=== PATIENT | female | born 1945 | race Caucasian/White ===

== ENCOUNTER 2020-10-17 15:34 | Inpatient (IN) | payer OTHER ==
[~2020-10-17] VITALS: Ht 160 cm; Wt 83.5 kg
--- NOTE | ~2020-10-17 | OP ---
[address] [address] OPERATIVE REPORT Name: CHRISTI CORONA Room: [address]#: [id number] Admission: 10/17/20 Attend Phys: Bayron Shaffer MD Discharge: Date of : 47 Report #: [id number] THIS REPORT FOR: //name// cc: Hugo Byrd David DO ~ CC: Hugo Shaffer DICTATED BY: Karlos Strauss DO DATE OF SERVICE: 10/18/2020 Dr. Strauss dictating operative report for Dr. Shay David. PREOPERATIVE DIAGNOSIS: Left intertrochanteric femur fracture. POSTOPERATIVE DIAGNOSIS: Left intertrochanteric femur fracture. PROCEDURE: Open reduction and internal fixation of left hip with a cephalomedullary nail. IMPLANTS USED: Paramount gamma nail 11 x 180 with a 110 mm lag screw and 40 mm distal interlocking screw. ATTENDING: Shay David DO ASSISTANTS: Karlos Strauss DO ANESTHESIA: General. FLUIDS: Crystalloid per Anesthesia. ESTIMATED BLOOD LOSS: 100 mL. COMPLICATIONS: None. SPECIMENS: None. COMPLICATIONS: None. CONDITION: Stable to PACU. DISPOSITION: Recovery in PACU and transferred back to the floor. ANTIBIOTICS: 2 grams Ancef IV preop. [address] [address] OPERATIVE REPORT Name: CHRISTI CORONA Room: [address]#: [id number] Admission: 10/17/20 Attend Phys: Bayron Shaffer MD Discharge: Date of : 47 Report #: [id number] INDICATIONS: The patient is a very pleasant 75-year-old female with past medical history of breast cancer. She sustained a ground level fall outside at home while setting up [employer]. She fell onto her left hip. She was brought to [facility] where x-rays identified a displaced intertrochanteric femur fracture. We recommended surgical fixation. The risks, benefits, alternatives and possible complications were discussed at length and she is agreeable to proceed. DESCRIPTION OF PROCEDURE: The patient was met in the preoperative area. The correct site was marked and consent was obtained both verbally and written. She was transferred to the operative suite and given the benefit of general anesthesia. She was then transferred supine position to the [place] table. The left foot was placed in the boot and attached to the spar. The right leg was placed in a leg cotto. She was secured to the table with a belt. We performed a reduction with traction and internal rotation. We took fluoroscopic images to confirm adequate reduction. The left hip was then prepped and draped in a normal sterile fashion. A timeout was performed to identify the correct patient, procedure and operative site. All in the room were in agreement. We started with an incision just proximal to the greater trochanter on the lateral side of the hip. A guidewire was used to identify our starting point on AP and lateral fluoroscopic images. We then used the opening reamer to gain access to the intramedullary canal. We then placed the 11 x 180 nail into the intramedullary canal to a depth appropriate for our lag screw. We then used the double sleeve and inserted this through the guide. We made an incision laterally for the lag screw and carried this down to the tensor fascia. We used a guidewire into the femoral head and neck, identifying appropriate position of the guidewire on AP and lateral images. We then reamed to 105 mm for a size 110 mm lag screw. This was placed by hand followed by the set screw. The set screw was found to be within this loops and confirmed by manual rotation. We then made an incision for the distal interlocking screw. This dissection was carried down to the level of the tensor fascia. We then drilled, measured and placed a distal interlocking screw. The guide was then removed. Final fluoroscopic images were taken and saved. Fascia was closed with 0 Vicryl suture in hajnak-cv-amvit fashion. Dermal tissue was reapproximated with 2-0 Monocryl suture followed by elvia on the skin and a sterile Mepilex dressing. She was extubated by the Anesthesia team and transferred to the PACU in stable condition. All needle and sponge counts were correct x 2 at the end of the case. She tolerated the procedure well without any complications. Dr. Shay David was present and scrubbed throughout all critical aspects of the case. By: 1820 1841Roberran David DO /nt
[2020-10-17] MEDS ORDERED: TOPROL XL50 MG (15:42)
[2020-10-17] MEDS ORDERED: SIMVASTATIN80 MG PO (15:42)
[2020-10-17] MEDS ORDERED: ELIQUIS5 M1 PO (15:42)
[2020-10-17] MEDS ORDERED: FAMOTIDINE 20 M20 MG PO (15:43)
[2020-10-17] MEDS ORDERED: ONDANSETRON ODT8 MG PO (15:43)
[2020-10-17] MEDS ORDERED: SUPER THERAVIT1 EACH PO (15:43)
[2020-10-17 17:15] LABS: ABSOLUTE MONOCYTES 0.5 thou/uL (0.0-1.2); ABSOLUTE NEUTROPHILS 3.7 thou/uL (1.6-8.1); BASOPHILS 0.4 %; EOSINOPHILS 0.6 %; HEMATOCRIT 33.7 % (37.0-47.0); HEMOGLOBIN 11.1 gm/dL (12.0-15.0); MCH 30.9 pg (26.0-34.0); MCHC 32.8 g/dL (28.0-37.0); MONOCYTES 7.4 %; MPV 7.4 fl. (7.2-11.1); NUCLEATED RBCS 0 /100WBC; PLATELET COUNT* 262 thou/uL (150-400); POLYS 59.6 %; RBC 3.59 mil/uL (4.20-5.00); RDW-CV 18.3 % (10.5-14.5); WBC 6.3 thou/uL (4.0-11.0)
[2020-10-17 17:23] LABS: CALCIUM 7.8 mg/dL (8.5-10.1); CREATININE 0.8 mg/dL (0.6-1.3); POTASSIUM 3.9 mmol/L (3.5-5.1)
[2020-10-17 17:28] LABS: ALBUMIN 3.2 g/dL (3.4-5.0); APTT 24.7 Seconds (25.0-31.3); PROTIME 10.6 Seconds (9.20-11.50); TOTAL BILIRUBIN 0.4 mg/dL (<0.1-1.0); TOTAL PROTEIN 6.7 g/dL (6.4-8.2)
[2020-10-17 18:21] LABS: URINE BILIRUBIN NEGATIVE (Negative); URINE BLOOD NEGATIVE (Negative); URINE CLARITY CLEAR; URINE COLOR YELLOW; URINE GLUCOSE-RANDOM NEGATIVE (Negative); URINE KETONES NEGATIVE (Negative); URINE LEUKOCYTES NEGATIVE (Negative); URINE NITRITE NEGATIVE (Negative); URINE PROTEIN NEGATIVE (Negative); URINE UROBILINOGEN 0.2 E.U./dl (0.2-1.0)
[2020-10-17 20:10] VITALS: BP 159/73
[2020-10-17 20:15] VITALS: BP 157/72
--- NOTE | 2020-10-18 05:23 | NUR ---
Admission at 2014. She has a L femur fracture. L leg is very painful and her leg is externally rotated. She had breast cancer and is currently recieving chemotherapy which she is supposed to get tommorrow. Dr Nuñez (ortho) was notified of the consult in the ED. She is recieving fentanyl 50 mcg for pain and had meds x 3. Davis cath was placed because she is unable to to move without being in extreme pain. She was outside hanging tresa decorations and fell off of something. At this time she is comfortable.
[2020-10-18 07:45] VITALS: BP 148/56
[2020-10-18 08:11] LABS: HEMOGLOBIN 9.5 gm/dL (12.0-15.0); MCH 30.3 pg (26.0-34.0); MCHC 32.7 g/dL (28.0-37.0); MCV 92.8 fL (80.0-100.0); MPV 7.4 fl. (7.2-11.1); RBC 3.13 mil/uL (4.20-5.00); RDW-CV 17.8 % (10.5-14.5); WBC 5.4 thou/uL (4.0-11.0)
--- NOTE | 2020-10-18 12:17 | NUR ---
SPOKE WITH PT.AND THIS AM ABOUT 10:00. SHE IS AWARE SHE WILL GO TO SURGERY THIS AFTERNOON. SHE SAID SHE WILL BE GLAD TO GET IT OVER WITH ,SO SHE CAN GET ON TO RECOVERING. SHE HAD A HIP REPLACEMENT ABOUT 6 YEARS AGO. HAS A FWW FROM THEN BUT DOESN'T USE. SHE SAID SHE WENT HOME FROM THE HOSPITAL AFTER SEV. DAYS AFTER SURGERY, BEFOR. DISCUSSED REHAB/SNF OR HOME WITH HH DEPENDENING ON HOW SHE DOES WIHT THERAPIES. SHE IS INDEPENDENT AT HOME. 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 HAS ABOUT 4 STAIRS TO GET INSIDE THE HOUSE. IS SUPPORTIVE. THEY ALSO HAVE A SON AND DAUGHTER.
--- NOTE | 2020-10-18 14:57 | EKG ---
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 : 1945 Requested By: Arik Hernandez Order Number: [id number] Nicole MD: Hugo Juarez Measurements Intervals [place] Rate: 80 P: 15 VT: 143 QRS: 10 QRSD: 93 T: 41 QT: 426 QTc: 492 Interpretive Statements Sinus rhythm septal q waves Low voltage, precordial leads Borderline prolonged QT interval No previous ECG available for comparison Electronically Signed On 10-18-2020 14:57:18 ANESTHESIOLOGY RESIDENT by Hugo Juarez [email or web address] <ELECTRONICALLY SIGNED> By: Hugo Juarez MD, FACC 10/18/20 1457 1541 1541 Hugo Juarez MD, [facility] /EPI
--- NOTE | 2020-10-18 15:55 | NUR ---
TO SURGERY AT 1520 BY [facility]. VIA BED.
--- NOTE | 2020-10-18 18:15 | NUR ---
PT STILL OFF UNIT IN SURGERY.
[2020-10-18 19:04] VITALS: BP 139/68
--- NOTE | 2020-10-18 19:06 | NUR ---
PT RETURNED TO ROOM FROM SURGERY. AWAKE AND ALERT. A & OX X 4. PWD. MEPILEX DRESSING LEFT HIP, C, D & I. FEET PUMPS ON. PT ON CAPNO. 34, O2 SAT 98% 3L NC. INDWELLING BERNSTEIN CATH INTACT AND PATENT YELLOW URINE. IV LR AT 80MLS/HR. PAIN IS CONTROLED AT 10. AT BEDSIDE. CALL LIGHT WITHIN REACH. WILL CONTINUE TO MONITOR.
[2020-10-18 20:00] VITALS: BP 104/58
[2020-10-19] VITALS: BP 113/52
[2020-10-19 04:00] VITALS: BP 127/59
--- NOTE | 2020-10-19 05:32 | NUR ---
ASSUMED PT'S CARE AT ABOUT 1930. ALERT AND ORIENTED. VSS ON 3L NC. CAPNO IN PLACE. MEDS GIVEN PER EMAR. PRN PAIN MED GIVEN X1 THIS SHIFT. PT UP X1 ASSSIT TO BSC. FALL PRECAUTION IN PLACE. BILATERAL SWETA HOSE. SCDs IN PLACE. PT ATTEMPTED GETTING UP X1 WITHOUT CALLING, OTHER HAVE BEEN COMPLIANT WITH CALL LIGHT. CALL LIGHT WITHN REACH. BM NOTED THIS SHIFT. WILL CONTINUE TO MONITOR.
[2020-10-19 07:03] LABS: HEMATOCRIT 27.3 % (37.0-47.0); HEMOGLOBIN 8.9 gm/dL (12.0-15.0)
[2020-10-19 07:30] VITALS: BP 123/54
[2020-10-19 08:18] LABS: INFLUENZA A ANTIGEN Negative (Negative); INFLUENZA B ANTIGEN Negative (Negative)
[2020-10-19 11:52] VITALS: BP 127/54
[2020-10-19 15:40] VITALS: BP 120/54
--- NOTE | 2020-10-19 18:56 | NUR ---
A&OX 4, PWD. AMANDEEP DC'D THIS AM AND PT ABLE TO URINATE WITHOUT DIFFICULTY. PT ABLE TO HAVE BM TODAY. LUNGS CLEAR, HEART TONES REGULAR, +BS X 4 QUADS. PEDAL PULSES PRESENT NO EDEMA NOTED. LEFT HIP INCISION COVED WITH MEPILEX AND DRESSING IS CLEAN, DRY AND INTACT. PT WITH PORT A-CATH IN RIGHT CHEST SALINE LOCKED. PT TOLERATED WORKING WITH PT/OT TODAY. TRYING TO GET PAIN MORE UNDER CONTROL. WHEN I ASK PATIENT IF SHE IS IN PAIN SHE HAS SAID SEVERAL TIMES SHE DID NOT WANT PAIN MEDICATION OR SHE WANTS ME TO COME BACK LATER. WAS UP VISITING TODAY. PT UP SITTING IN CHAIR ALL AFTERNOON AND TOLERATING WELL. CALL LIGHT WITHIN REACH. WILL CONTINUE TO MONITOR. POSSIBLE HOME TOMORROW.
[2020-10-19 20:57] VITALS: BP 110/54
--- NOTE | 2020-10-20 04:12 | NUR ---
PT A&O, VSS ON ROOM AIR, PT UP WITIH ASSIST, NO C/O PAIN SO FAR THIS SHIFT, PT SLEEPING WELL, WILL CONTINUE TO MONITOR.
[2020-10-20 04:31] VITALS: BP 112/60
[2020-10-20 07:29] LABS: HEMATOCRIT 24.6 % (37.0-47.0); HEMOGLOBIN 7.9 gm/dL (12.0-15.0)
[2020-10-20 07:45] VITALS: BP 138/68
[2020-10-20] MEDS ORDERED: OXYCODONE HCL 55 MG PO (08:28)
[2020-10-20] MEDS ORDERED: COLACE 100 MG100 MG PO (08:28)
[2020-10-20] MEDS ORDERED: TRAMADOL 50 MG50 MG PO (08:28)
--- NOTE | 2020-10-20 09:24 | NUR ---
THIS NURSE AGREES WITH MORNING ASSESSMENT BY DEMARCUS SHIPLEY
--- NOTE | 2020-10-20 09:29 | NUR ---
PT IN TO WORK WITH PT AT THIS TIME. PAIN MEDICATION GIVEN BEFORE TREATMENT. UP IN THE CHAIR AT THIS TIME.
--- NOTE | 2020-10-20 09:30 | NUR ---
0830- PT UP TO THE BEDSIDE COMMODE WITH MAX ASSIST. LARGE VOID. SMALL AMOUNT OF STOOL NOTED.
--- NOTE | 2020-10-20 10:43 | NUR ---
PT INFORMED OF PLAN TO D/C TODAY IF SHE IS COMFORTABLE. INFORMED TO LET NURSING KNOW WHEN SON ARRIVES TO COORDINATE WITH SECOND PT SESSION THIS AFTERNOON. STATES UNDERSTANDING.
--- NOTE | 2020-10-20 14:46 | NUR ---
SPOKE WITH PT. SHE WAS UP IN CHAIR FOR LUNCH. SHE SAID SHE FELT LIKE SHE NEEDED ANOTHER DAY IN HOSPITAL. SAID THIS WAS OK. WILL STAY ONE MORE DAY AND HAVE 1-2 MORE THERAPY SESSIONS. SHE WOULD LIKE TO HAVE HOME HEALTH.HER. CM WILL FIND AGENCY IN HER AREA, THAT TAKE HER INS. WILL BE THERE WITH HER AT HOME. PT.TAKES ELIQUIS AT HOME ALREADY FOR A.FIB. SHE HAS A WALKER AT HOME FOR USE.
[2020-10-20 16:00] VITALS: BP 119/59
--- NOTE | 2020-10-20 16:45 | NUR ---
[employer] PETER APPROVED 2 VISITORS TO TRAIN WITH PATIENT AND PHYSICAL THERAPY. BOTH FAMILY MEMBERS WILL BE TAKING CARE OF THE PATIENT AND WOULD LIKE TO TRAIN WITH PHYSICAL THERAPY.
--- NOTE | 2020-10-20 17:58 | NUR ---
PT REMAINS ALERT AND ORIENTED X 4. PT WORKED WITH PHYSICAL THERAPY X2 THIS SHIFT. PAIN CONTROLLED WITH PRN MEDICATIOS. PETER MARTIN APPOROVED 2 VISITORS TO SEE PATIENT TOMORROW TO WORK WITH PHYSICAL THERAPY FOR DISCHARGE. HOURLY ROUNDS COMPLETED. FALL RISK PRECAUTIONS IN PLACE. WILL CONTINUE TO MONITOR.
[2020-10-20 19:35] VITALS: BP 114/46
--- NOTE | 2020-10-21 04:26 | NUR ---
PT A&OX4, VSS ON ROOM AIR, PT UP W/ASSIST TO BSC, NO C/O PAIN THIS SHIFT, PT SLEEPING WELL, WILL CONTINUE TO MONITOR.
[2020-10-21 08:10] VITALS: BP 137/53
--- NOTE | 2020-10-21 11:55 | NUR ---
CM SENT REFERRAL TO [facility] [phone]. [facility] CANNOT ACCEPT [place] AND [facility] CANNOT ACCEPT TO [facility] OR COVERAGE AREA [facility] DOES NOT COVER THE AREA
[2020-10-21 12:19] VITALS: BP 137/53
--- NOTE | 2020-10-21 14:31 | NUR ---
CM FAXED REFERRAL AND SCRIPT TO [facility].
[2020-10-21 15:24] VITALS: BP 137/53
--- NOTE | 2020-10-21 15:45 | NUR ---
PATIENT DISCHARGED TO HOME WITH HOME HEALTH. DISCHARGE PAPERS REVIEWED AND SIGNED. PRESCRIPTIONS AND INFORMATION SHEETS GIVEN. PORT-A-CATH PACKED WITH HEPARIN AND DEACCESSED. CASE MANAGEMENT HAD WALKER PROVIDED. PATIENT DENIES ANY FURTHER NEEDS. PATIENT TAKEN BY WHEELCHAIR TO EXIT. LEFT WITH SON AND .
[2020-10-21 16:04] VITALS: BP 137/53
--- NOTE | 2020-10-25 12:06 | PATH ---
[address] [address] PATHOLOGY RPT PROCEDURE Name: SARA CORONA Room: [address] IN [facility]#: [id number] Admission: 10/17/20 Date of : 47 Discharge: 10/21/20 Report #: [id number] Path Case #: [id number] LCA Accession Number: [id number] . 01 Material submitted: . hip - REAMINGS LEFT HIP. Modifiers: left . 01 Clinician provided ICD-10: M80.052A D68.69 . 01 Clinical history: . LEFT PROXIMAL INTERTROCHANTER FEMUR FRACTURE . 02 Diagnosis: Bone and soft tissue "reamings from left hip fracture", excision: - Fragments of trabecular bone, skeletal muscle, fibrous tissue, blood, fibrin, and acute and chronic inflammation, consistent with fracture site. - Trilineage hematopoiesis. - Negative for malignancy. (ALLENK:mike; 10/22/2020) QMS 10/25/2020 1158 Local . 02 Electronically signed: . Flor Olmedo MD, Pathologist NPI- [id number] . 01 Gross description: . The specimen is received in formalin, labeled "Sara Corona, reamings left hip". Received are reamings of red-brown tissue admixed with bone measuring 3.0 x 2.5 x 0.5 cm in aggregate dimensions. The specimen is filtered and entirely spitted in cassette A1, following light decalcification. (CAA; 10/21/2020) QAC/QAC 10/21/2020 1221 Local . 02 Microscopic: . Immunohistochemical stain results (properly controlled) - A1: . AE1/AE3 - Negative for epithelial cells. . (MLK:mike; 10/22/2020) . 02 Pathologist provided ICD-10: M80.052A . 02 [place] [address] PATHOLOGY RPT PROCEDURE Name: SARA CORONA Room: [address]#: [id number] Admission: 10/17/20 Date of : 47 Discharge: 10/21/20 Report #: [id number] Path Case #: [id number] Specimen Comment: A courtesy copy of this report has been sent to [phone], [phone]- Specimen Comment: [phone], Specimen Comment: Report sent to ,DR BULLARD / DR MCGOVERN Performed at: [address], [place], [place] [id number] MD Josh Doll MD Phone: [phone] Performed at: 02 [facility] [address], [place], [place] [id number] MD Bautista Banuelos MD Phone: [phone]
== END 2020-10-21 15:45 | disposition home health service (06) | DRG 481 ==
LOC: M.ERS 15:34 → M.TBA-ER 18:08 → M.3W 18:08
PROVIDERS: Nurse Practitioner Family; Orthopaedic Surgery; ADMIT Internal Medicine; ATTEND Internal Medicine
PROC: 0QS704Z Reposition Left Upper Femur with Internal Fixation Device, Open Approach (ICD-10-PCS; principal; 2020-10-18)
DX: M80.052A Age-related osteoporosis with current pathological fracture, left femur, initial encounter for fracture (principal); D68.69 Other thrombophilia; Z96.641 Presence of right artificial hip joint; I10 Essential (primary) hypertension; I48.91 Unspecified atrial fibrillation; D50.0 Iron deficiency anemia secondary to blood loss (chronic); E78.5 Hyperlipidemia, unspecified; Z20.828 Contact with and (suspected) exposure to other viral communicable diseases; D63.8 Anemia in other chronic diseases classified elsewhere; Z90.13 Acquired absence of bilateral breasts and nipples; Z85.3 Personal history of malignant neoplasm of breast; Z88.2 Allergy status to sulfonamides